=== PATIENT | female | born 1985 | race Caucasian/White ===

== ENCOUNTER 2016-11-19 16:24 | Emergency (ER) | payer SELFPAY ==
--- NOTE | 2016-11-19 17:14 | ED CLINICAL REPORT ---
Clinical Report - Physicians/Mid Levels [facility] [address] [place] [address] 11/19/2016 16:27 Patient: ATIF LEMUS Time Seen: 16:34; initial patient contact, initial documentation, patient care assumed. Arrived- By private vehicle. Historian- patient. HISTORY OF PRESENT ILLNESS Chief Complaint: Injury to the left hand. The injury happened just prior to arrival. The patient sustained a laceration from a knife. Occurred at home. Patient is experiencing moderate pain. Patient denies injury to the head or neck. No other injury. REVIEW OF SYSTEMS The patient sustained a laceration. No swelling, tingling, numbness or weakness. All systems otherwise negative, except as recorded above. PAST HISTORY Negative. The patient's dominant hand is the right. Tetanus immunization status is up-to-date. Surgeries: Cholecystectomy. SOCIAL HISTORY Never smoker. No alcohol use or drug use. No recent travel. Is a local resident. FAMILY HISTORY No significant family medical history. ADDITIONAL NOTES The nursing notes have been reviewed with agreement regarding the chief complaint, HPI, ROS, PMH and patient medications and allergies. PHYSICAL EXAM Vital Signs: 11/19/2016 16:44 BP: 122/67. HR: 71. RR: 20. O2 saturation: 100%. Temp: 97.9 F. Pain level now: 8/10. Have been reviewed as normal and appear to be correct. Appearance: Alert. Oriented X3. No acute distress. Head: Head atraumatic. Eyes: Pupils equal, round and reactive to light. Eyes normal inspection. Respiratory: No respiratory distress. Skin: Skin warm and dry. Skin intact. Extremities: Hand injury present. (1.5 cm lac to on side of hand near palm in space between thumb and index finger). No wrist injury. Hand and wrist exam otherwise negative. Extremities otherwise negative. Neuro, Vascular and Tendons: Vascular status intact. Sensation intact. Motor intact. Tendon function intact. Neuro: Oriented X 3. No motor deficit. No sensory deficit. Note: isolated injury to hand. PROGRESS AND PROCEDURES Laceration Repair: Location: left hand. Length: 1.5cm. Complexity: simple (local anesthesia used and sutured). Wound depth/shape- subcutaneous and linear and involving fascia. Wound is clean. No contamination, foreign body or contused tissue present. No tissue loss. Distal neuro/vascular/tendon status normal. Tendon not examined. No tendon deficit or laceration or tendon injury. Local anesthesia provided using 1% lidocaine (4 mL). Prepped with Betadine. Wound explored, cleansed, irrigated and examined to the base in bloodless field with normal saline. Wound not debrided. No foreign material removed. Closure of skin: interrupted 4-0 nylon (3 sutures). Post-procedure: she is stable and there are no complications. Bleeding is controlled and neuro-vascular status is intact distal to the wound. Clean dressing applied. (per nurse or tech, see other notes). Tetanus immunization up-to-date. Estimated blood loss: 4 mL. Patient counseled in person regarding the patient's stable condition and diagnosis. 17:13. Differential Diagnosis: Other possible considerations: hand lac, fb, skin avulsion, tendon injury. Above considerations are based on history and physical exam. Differential diagnosis was discussed with patient. Disposition: Discharged home in good and improved condition (17:14). Condition: good and stable. CLINICAL IMPRESSION Single deep laceration to the left hand.Treatment of laceration not delayed. No infection, foreign body present or left fingernail injury. INSTRUCTIONS Protect wound and keep wound area clean. Soak in warm soapy water twice daily. Apply bacitracin twice daily. Do not work today. Warnings: GENERAL WARNINGS: Return or contact your physician immediately if your condition worsens or changes unexpectedly, if not improving as expected, or if other problems arise. Specifically return if problem worsens. Follow-up: Follow up with your doctor in about ten days even if well and for suture removal and wound check. Call for an appointment. Summary of care provided to patient. Understanding of the discharge instructions verbalized by patient. (Electronically signed by Erica Murillo A.R.N.P. 11/19/2016 17:38)
--- NOTE | 2016-11-19 17:14 | ED NURSING NOTES ---
Clinical Report - Nurses [facility] [address] [place] [address] 11/19/2016 16:27 Patient: ATIF LEMUS TRIAGE Triage time 16:46. Acuity: LEVEL 3. Chief Complaint: INJURY TO LEFT HAND. Alert. No acute distress. SEPSIS SCREEN: Sepsis Screen: negative. Negative (no infection suspected/documented). STEVE COMA SCORE: Steve Coma Scale: 15- eyes open spontaneously (4); best verbal response- oriented x 4 (5); best motor response- obeys commands (6). --16:48 Terri Blackwell R.N. 16:44 11/19/16. BP: 122/67. HR: 71. RR: 20. O2 saturation: 100%. Temp: 97.9 F. Pain level now: 06/01. --16:48 Terri Blackwell R.N. Weight: 68.9 kg stated. Height/Length: 64 inches Per Patient. BMI: 26.1. --16:45 Terri Blackwell R.N. Medications None. --16:46 Terri Blackwell R.N. Medication/allergy information source: the patient. --16:48 Terri Blackwell R.N. Allergies No Known Drug Allergy. --16:46 Terri Blackwell R.N. History Arrived by private vehicle. Historian: patient and family. Accompanied by family. Primary physician (brigid). This occurred just prior to arrival. She sustained a laceration from a knife. Treatment MEDICAL LAB SPECIALIST: None. PAST MEDICAL HX: Negative. SURGERY HX: Cholecystectomy. SOCIAL HX: Never smoker. No alcohol use or drug use. FALL RISK ASSESSMENT: Fall risk assessment completed. No fall risk identified. NUTRITIONAL RISK ASSESSMENT: The nutritional risk assessment revealed no deficiencies. FUNCTIONAL ASSESSMENT: Functional assessment: no impairments noted. LEARNING NEEDS ASSESSMENT: The learning needs assessment revealed no barriers. SKIN INTEGRITY ASSESSMENT: Skin integrity risk assessment completed. No skin integrity risk identified. --16:48 Terri Blackwell R.N. PAST MEDICAL HX: Tetanus status: up-to-date. Last normal menstrual period- Nov 06. --16:50 Terri Blackwell R.N. Interventions 16:48 11/19/16. ID band on patient. To room. --16:48 Terri Blackwell R.N. PHYSICAL ASSESSMENT Ambulatory to room. GENERAL / NEURO / PSYCH: Oriented X 4. Alert. Appears in pain and anxious. EXTREMITIES: Limited ROM present. Capillary refill is less than 2 seconds in the extremities. Extremity pulses are within normal limits. Neuro-vascular status intact to the extremity. Left hand: subcutaneous laceration with controlled bleeding. SKIN: Skin intact. Skin is warm and dry. --16:49 Terri Blackwell R.N. NURSING PROGRESS NOTES Extremity elevated. Two patient identifiers checked. Call light placed in reach. Side rails up x 1. Bed placed in lowest position. Brakes of bed on. Patient ready for evaluation. --16:49 Terri Blackwell R.N. DISPOSITION / DISCHARGE 17:35. Condition at departure: improved. No learning barriers present. Reviewed wound care instructions. Work note given. Patient verbalized understanding. Written instructions provided in [place]. The patient was discharged home and accompanied by family. She left the Emergency Department ambulatory and via private vehicle. Family member driving. Medication list reviewed and validated. --20:04 Terri Blackwell R.N. 16:44 11/19/16. BP: 122/67. HR: 71. RR: 20. O2 saturation: 100%. Temp: 97.9 F. Pain level now: 8/10. --20:04 Terri Blackwell R.N. Locked/Released at 11/19/2016 20:04 by Terri Blackwell R.N.
--- NOTE | 2016-11-19 17:14 | ED NURSING NOTES ---
Clinical Report - Nurses [facility] [address] [place] [address] 11/19/2016 16:27 Patient: ATIF LEMUS TRIAGE Triage time 16:46. Acuity: LEVEL 3. Chief Complaint: INJURY TO LEFT HAND. Alert. No acute distress. SEPSIS SCREEN: Sepsis Screen: negative. Negative (no infection suspected/documented). STEVE COMA SCORE: Steve Coma Scale: 15- eyes open spontaneously (4); best verbal response- oriented x 4 (5); best motor response- obeys commands (6). --16:48 Terri Blackwell R.N. 16:44 11/19/16. BP: 122/67. HR: 71. RR: 20. O2 saturation: 100%. Temp: 97.9 F. Pain level now: 06/01. --16:48 Terri Blackwell R.N. Weight: 68.9 kg stated. Height/Length: 64 inches Per Patient. BMI: 26.1. --16:45 Terri Blackwell R.N. Medications None. --16:46 Terri Blackwell R.N. Medication/allergy information source: the patient. --16:48 Terri Blackwell R.N. Allergies No Known Drug Allergy. --16:46 Terri Blackwell R.N. History Arrived by private vehicle. Historian: patient and family. Accompanied by family. Primary physician (brigid). This occurred just prior to arrival. She sustained a laceration from a knife. Treatment CHANGE CONSULTANT: None. PAST MEDICAL HX: Negative. SURGERY HX: Cholecystectomy. SOCIAL HX: Never smoker. No alcohol use or drug use. FALL RISK ASSESSMENT: Fall risk assessment completed. No fall risk identified. NUTRITIONAL RISK ASSESSMENT: The nutritional risk assessment revealed no deficiencies. FUNCTIONAL ASSESSMENT: Functional assessment: no impairments noted. LEARNING NEEDS ASSESSMENT: The learning needs assessment revealed no barriers. SKIN INTEGRITY ASSESSMENT: Skin integrity risk assessment completed. No skin integrity risk identified. --16:48 Terri Blackwell R.N. PAST MEDICAL HX: Tetanus status: up-to-date. Last normal menstrual period- Nov 06. --16:50 Terri Blackwell R.N. Interventions 16:48 11/19/16. ID band on patient. To room. --16:48 Terri Blackwell R.N. PHYSICAL ASSESSMENT Ambulatory to room. GENERAL / NEURO / PSYCH: Oriented X 4. Alert. Appears in pain and anxious. EXTREMITIES: Limited ROM present. Capillary refill is less than 2 seconds in the extremities. Extremity pulses are within normal limits. Neuro-vascular status intact to the extremity. Left hand: subcutaneous laceration with controlled bleeding. SKIN: Skin intact. Skin is warm and dry. --16:49 Terri Blackwell R.N. NURSING PROGRESS NOTES Extremity elevated. Two patient identifiers checked. Call light placed in reach. Side rails up x 1. Bed placed in lowest position. Brakes of bed on. Patient ready for evaluation. --16:49 Terri Blackwell R.N. DISPOSITION / DISCHARGE 17:35. Condition at departure: improved. No learning barriers present. Reviewed wound care instructions. Work note given. Patient verbalized understanding. Written instructions provided in [place]. The patient was discharged home and accompanied by family. She left the Emergency Department ambulatory and via private vehicle. Family member driving. Medication list reviewed and validated. --20:04 Terri Blackwell R.N. 16:44 11/19/16. BP: 122/67. HR: 71. RR: 20. O2 saturation: 100%. Temp: 97.9 F. Pain level now: 8/10. --20:04 Terri Blackwell R.N. Locked/Released at 11/19/2016 20:04 by Terri Blackwell R.N.
--- NOTE | 2016-11-19 20:05 | ED MAR SUMMARY ---
..... Medication Administration Record [facility] [address] [place], [place] [id number] Patient: ATIF LEMUS Visit ID: [id number] 31y, F Weight: 68.9 kg Height/Length: 64 in BMI: 26.1 ALLERGIES: No Known Drug Allergy
--- NOTE | 2016-11-19 20:05 | ED MED RECONCILIATION SUMMARY ---
Patient: ATIF LEMUS Medication Reconciliation Report [facility] VisitID: [id number] [address] [place] [address] 31y, F Registration Date/Time: 11/19/2016 Weight: 68.9 kg Height/Length: 64 in. BMI: 26.1 ALLERGIES: No Known Drug Allergy The patient's Home Medications are listed below: NONE. The source(s) of the original Home Medication information: patient The following Medications were given to the patient in the Emergency Department: None. The following Medications were prescribed to the patient: None.
--- NOTE | 2016-11-19 20:05 | ED DISCHARGE INSTRUCTIONS ---
Patient: ATIF LEMUS General Instructions [facility] VisitID: [id number] [place] [address] 31y, F Registration Date/Time: 11/19/2016 Single deep laceration to the left hand.Treatment of laceration not delayed. No infection, foreign body present or left fingernail injury. INSTRUCTIONS Protect wound and keep wound area clean. Soak in warm soapy water twice daily. Apply bacitracin twice daily. Do not work today. Warnings: GENERAL WARNINGS: Return or contact your physician immediately if your condition worsens or changes unexpectedly, if not improving as expected, or if other problems arise. Specifically return if problem worsens. Follow-up: Follow up with your doctor in about ten days even if well and for suture removal and wound check. Call for an appointment. Summary of care provided to patient. Understanding of the discharge instructions verbalized by patient. ADDITIONAL INFORMATION Laceration, Extremity (Sutures, [place], Or Tape) A laceration is a cut through the skin. This will usually require stitches (sutures) or saud if it is deep. Minor cuts may be treated with surgical tape closures. Home care The following guidelines will help you care for your laceration at home: Keep the wound clean and dry. If a bandage was applied and it becomes wet or dirty, replace it. Otherwise, leave it in place for the first 24 hours, then change it once a day or as directed. If stitches or saud were used, clean the wound daily: After removing the bandage, wash the area with soap and water. Use a wet cotton swab to loosen and remove any blood or crust that forms. After cleaning, keep the wound clean and dry. Talk with your doctor before applying any antibiotic ointment to the wound. Reapply the bandage. You may remove the bandage to shower as usual after the first 24 hours, but do not soak the area in water (no swimming) until the stitches or saud are removed. If surgical tape closures were used, keep the area clean and dry. If it becomes wet, blot it dry with a towel. The doctor may prescribe an antibiotic cream or ointment to prevent infection. Do not stop taking this medication until you have finished the prescribed course or the doctor tells you to stop. The doctor may also prescribe medications for pain. Follow the doctors instructions for taking these medications. If you have chronic liver or kidney disease or ever had a stomach ulcer or GI bleeding, talk with your doctor before using these medicines. Follow-up care Follow up with your health care provider. Most skin wounds heal within ten days. However, an infection may sometimes occur despite proper treatment. Therefore, check the wound daily for the signs of infection listed below. Stitches and saud should be removed within 714 days. If surgical tape closures were used, you may remove them after 10 days, if they have not fallen off by then. Notify your doctor if you notice persistent numbness or weakness in the injured extremity. (Note:A radiologist will review any X-rays that were taken. We will notify you of any new findings that may affect your care.) When to seek medical care Get prompt medical attention if any of these occur: Increasing pain in the wound Redness, swelling, or pus coming from the wound Fever of 100.4F (38C) or higher, or as directed by your health care provider If stitches or saud come apart or fall out before your next appointment If the surgical tape closures fall off within seven days, or the wound edges re-open Bleeding not controlled by direct pressure You have been given the following additional information: Laceration, Extrem (Suture, Staple, Or Tape) Do not work today. (Electronically signed by Erica Murillo A.R.N.P. 11/19/2016 17:38)
--- NOTE | 2016-11-19 20:05 | ED MAR SUMMARY ---
..... Medication Administration Record [facility] [address] [place], [place] [id number] Patient: ATIF LEMUS Visit ID: [id number] 31y, F Weight: 68.9 kg Height/Length: 64 in BMI: 26.1 ALLERGIES: No Known Drug Allergy
--- NOTE | 2016-11-19 20:05 | ED MED RECONCILIATION SUMMARY ---
Patient: ATIF LEMUS Medication Reconciliation Report [facility] VisitID: [id number] [address] [place] [address] 31y, F Registration Date/Time: 11/19/2016 Weight: 68.9 kg Height/Length: 64 in. BMI: 26.1 ALLERGIES: No Known Drug Allergy The patient's Home Medications are listed below: NONE. The source(s) of the original Home Medication information: patient The following Medications were given to the patient in the Emergency Department: None. The following Medications were prescribed to the patient: None.
== END 2016-11-19 17:35 | disposition home or self-care (01) ==
LOC: ED SRH 16:24
DX: S61.412A Laceration without foreign body of left hand, initial encounter (principal); W26.0XXA Contact with knife, initial encounter; Y93.9 Activity, unspecified; Y92.009 Unspecified place in unspecified non-institutional (private) residence as the place of occurrence of the external cause; Y99.9 Unspecified external cause status